=== PATIENT | male | born 1945 | race Caucasian/White ===

== ENCOUNTER 2019-11-02 20:04 | Emergency (ER) | payer OTHER, SELFPAY ==
--- NOTE | 2019-11-02 21:06 | CT ---
CT OF THE BRAIN WITHOUT CONTRAST: 11/02/[address] of the brain was done following trauma. Axial slices were acquired followed by coronal and sagittal reconstructions. No fracture was seen in the skull. There is no evidence of intracranial bleeding, mass or extra-axial hematoma. No stroke or edema was seen. The ventricles are normal in size and show no shift. The visi ble paranasal sinuses are clear. An incidental finding is what appears to be several small polyps in each maxillary sinus. IMPRESSION: No acute intracranial findings. Preliminary report called to Corie in ER at [id number]. POS: HOME
== END 2019-11-02 20:55 | disposition home or self-care (01) ==
LOC: BURERS 20:04
DX: S01.01XA Laceration without foreign body of scalp, initial encounter (principal); S50.12XA Contusion of left forearm, initial encounter; E78.2 Mixed hyperlipidemia; I10 Essential (primary) hypertension; F41.9 Anxiety disorder, unspecified; W22.8XXA Striking against or struck by other objects, initial encounter
CPT/HCPCS: 12001; 70450